=== PATIENT | male | born 1970 | race Caucasian/White ===

== ENCOUNTER 2016-12-05 13:19 | Emergency (ER) | payer SELFPAY ==
[~2016-12-05] VITALS: Ht 172.7 cm; Wt 80.0 kg
[~2016-12-05 13:19] MED LIST: ALBU8I INH; PRED10 PO; PRED1TAB PO; PRED50 PO; VENTAER INH
[2016-12-05 13:26] VITALS: BP 176/107; PULSE 85; RESP 22; TEMP 98.2; O2SAT 98
[2016-12-05 13:36] VITALS: BP 143/93; PULSE 86; RESP 24; TEMP 97.5; O2SAT 97
[2016-12-05] MEDS ORDERED: SPIRCAP INH (13:38)
[2016-12-05] MEDS ORDERED: PRED10 PO (13:38)
[2016-12-05] MEDS ORDERED: SODIUM CHLOR 0.9% 1000 ML INJ 1,000 ML IV ONE ×2 (14:15)
[2016-12-05] MEDS ORDERED: LORazepam 2 MG/ML VIAL IV PUSH ONE (14:15)
--- NOTE | 2016-12-05 14:33 | PD ---
HPI Chief Complaint: Respiratory Distress Time Seen by Provider: 14:09 Travel History International Travel<30 days: No Contact w/Intl Traveler<30days: No Traveled to known affect area: No History of Present Illness HPI So 45 old male presents to the emergency department via EMS complaining of shortness of breath, tingling and numbness in his hands and feet, and weakness. He is working outside when symptoms started. He has had similar symptoms in the past. He does have some anxiety with these episodes. Denies any chest pain. States symptoms with the numbness and tingling came on before the lightheadedness. 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 He rested felt a little bit better tried to drive but had worsening symptoms and so called EMS. History Past Medical History Narrative Medical Hypertension Tetanus Vaccination: Unknown Influenza Vaccination: No Past Surgical History Surgical History: No Previous Surgery Social History Alcohol Use: Yes (occ) Tobacco Use: No Allergies-Medications (Allergen,Severity, Reaction): Coded Allergies: No Known Allergies (Unverified , 10/13/15) Reported Meds & Prescriptions Reported Meds & Active Scripts Active Reported Spiriva Handihaler (Tiotropium Inh) 18 Mcg Cap 18 Mcg INH DAILY 1 capsule = 18 mcg Prednisone 10 Mg Tab 10 Mg PO DAILY Review of Systems Except as stated in HPI: all other systems reviewed are Neg Physical Exam Narrative GENERAL: Well-appearing 45 old man, sweaty, little bit exhausted appearing. SKIN: Hot and wet. HEAD: Atraumatic. Normocephalic. EYES: Pupils equal and round. No scleral icterus. No injection or drainage. CARDIOVASCULAR: Regular rate and rhythm. No murmur appreciated. RESPIRATORY: No accessory muscle use. Clear to auscultation. Breath sounds equal bilaterally. GASTROINTESTINAL: Abdomen soft, non-tender, nondistended. Hepatic and splenic margins not palpable. MUSCULOSKELETAL: No obvious deformities. No edema. No significant muscle body tenderness. NEUROLOGICAL: Awake and alert. No obvious cranial nerve deficits. Motor grossly within normal limits. Normal speech. PSYCHIATRIC: Appropriate mood and affect; insight and judgment normal. Data Data Last Documented VS Vital Signs Date Time Temp Pulse Resp B/P Pulse Ox O2 Delivery O2 Flow Rate FiO2 12/05/16 13:36 97.5 86 24 143/93 97 Room Air Orders Chest, Single Ap (12/05/16 ) Complete Blood Count With Diff (12/05/16 14:12) Basic Metabolic Panel (Bmp) (12/05/16 14:12) Iv Access Insert/Monitor (12/05/16 14:12) Sodium Chlor 0.9% 1000 Ml Inj (Ns 1000 M (12/05/16 14:15) Sodium Chlor 0.9% 1000 Ml Inj (Ns 1000 M (12/05/16 14:15) Lorazepam Inj (Ativan Inj) (12/05/16 14:15) Electrocardiogram (12/05/16 ) Labs Laboratory Tests Test 12/05/16 14:27 White Blood Count 11.6 TH/MM3 Red Blood Count 5.53 MIL/MM3 Hemoglobin 15.3 GM/DL Hematocrit 45.6 % Mean Corpuscular Volume 82.4 FL Mean Corpuscular Hemoglobin 27.6 PG Mean Corpuscular Hemoglobin 33.5 % Concent Red Cell Distribution Width 14.3 % Platelet Count 361 TH/MM3 Mean Platelet Volume 8.8 FL Neutrophils (%) (Auto) 78.5 % Lymphocytes (%) (Auto) 15.9 % Monocytes (%) (Auto) 3.9 % Eosinophils (%) (Auto) 1.0 % Basophils (%) (Auto) 0.7 % Neutrophils # (Auto) 9.1 TH/MM3 Lymphocytes # (Auto) 1.8 TH/MM3 Monocytes # (Auto) 0.4 TH/MM3 Eosinophils # (Auto) 0.1 TH/MM3 Basophils # (Auto) 0.1 TH/MM3 CBC Comment DIFF FINAL Differential Comment Sodium Level 138 MEQ/L Potassium Level 4.3 MEQ/L Chloride Level 105 MEQ/L Carbon Dioxide Level 19.4 MEQ/L Anion Gap 14 MEQ/L Blood Urea Nitrogen 15 MG/DL Creatinine 1.05 MG/DL Estimat Glomerular Filtration 77 ML/MIN Rate Random Glucose 100 MG/DL Calcium Level 9.5 MG/DL [facility] Medical Decision Making Medical Screen Exam Complete: Yes Emergency Medical Condition: Yes Interpretation(s) LABS: CBC remarkable for mild leukocytosis. BMP generally unremarkable. My review of EKG: Normal sinus rhythm at a rate of 71, normal axis, normal intervals, no ischemia. Chest x-ray: No acute disease. Differential Diagnosis Heat exhaustion, hyperventilation, anxiety, electrolyte abnormality, and weakness Narrative Course Medical decision making 45 old male presents emergency department with sounds a combination of heat exhaustion and anxiety. He looks well now. He is feeling better in the ED. We 'll trend we'll check labs, EKG, x-ray. We'll also infused 2 L of saline, give him some Ativan. We'll reassess. He's had similar episodes in the past and again seem like accommodation of panic symptoms with dehydration or heat exhaustion as a precipitant. Diagnosis Primary Impression: Heat exhaustion Additional Impression: Anxiety Additional Instructions: Drink plenty of fluids stay well-hydrated. Return to the emergency department for any new or worsening symptoms. Med/Other Pt SpecificInfo: No Change to Meds Disposition: 01 DISCHARGE HOME Condition: Stable Stanislav Hernandez MD December 05, 2016 14:33
[2016-12-05 14:42] LABS: AUTOMATED NEUTROPHIL # 9.1 TH/MM3 (1.8-7.7); BASOPHIL # 0.1 TH/MM3 (0-0.2); BASOPHIL % 0.7 % (0.0-2.0); EOSINOPHIL # 0.1 TH/MM3 (0-0.4); HEMATOCRIT 45.6 % (39.0-51.0); HEMO FLAGS DIFF FINAL; LYMPH % 15.9 % (9.0-44.0); LYMPHOCYTE # 1.8 TH/MM3 (1.0-4.8); MEAN CELL VOLUME 82.4 FL (80.0-100.0); MEAN CORPUSCULAR HEMOGLOBIN 27.6 PG (27.0-34.0); MEAN CORPUSCULAR HGB CONC 33.5 % (32.0-36.0); MONO % 3.9 % (0.0-8.0); NEUT % 78.5 % (16.0-70.0); PLATELET COUNT 361 TH/MM3 (150-450); RED BLOOD COUNT 5.53 MIL/MM3 (4.50-5.90); RED CELL DISTRIBUTION WIDTH 14.3 % (11.6-17.2); WHITE BLOOD COUNT 11.6 TH/MM3 (4.0-11.0)
[2016-12-05 15:09] LABS: BICARBONATE 19.4 MEQ/L (21.0-32.0); POTASSIUM 4.3 MEQ/L (3.5-5.1)
--- NOTE | 2016-12-05 15:09 | RADRPT ---
EXAM DATE/TIME: 12/05/2016 14:34 [facility] COMPARISON: CHEST SINGLE AP, October 13, 2015, 4:46. INDICATIONS : Short of breath, productive cough, numbness in legs and feet. MEDICAL HISTORY : None. SURGICAL HISTORY : None. ENCOUNTER: Initial ACUITY: 1 day PAIN SCORE: 0/10 LOCATION: Bilateral chest FINDINGS: A single view of the chest demonstrates the lungs to be symmetrically aerated without evidence of mas s, infiltrate or effusion. The cardiomediastinal contours are unremarkable. Osseous structures are intact. CONCLUSION: No acute disease. Hugo Powell MD on December 05, 2016 at 15:06 Board Certified Radiologist. This report was verified electronically.
[2016-12-05 15:47] VITALS: BP 132/80
--- NOTE | 2016-12-06 11:03 | EKG ---
Date Performed: 12/05/2016 Time Performed: 14:44:07 PTAGE: 45 years EKG: Sinus rhythm NORMAL ECG NO PREVIOUS TRACING DOCTOR: Stanislav Irvin Interpretating Date/Time 12/06/2016 11:00:21
== END 2016-12-05 15:50 | disposition home or self-care (01) ==
LOC: NEPD 13:19
DX: T67.5XXA Heat exhaustion, unspecified, initial encounter (principal); F41.9 Anxiety disorder, unspecified; R06.02 Shortness of breath; R20.0 Anesthesia of skin; I10 Essential (primary) hypertension
CPT/HCPCS: 71010; 80048; 85025; 93005; 96361; 96374; 99285; J2060; J7030

== ENCOUNTER 2016-12-20 12:15 | Emergency (ER) | payer SELFPAY ==
[~2016-12-20] VITALS: Ht 177.8 cm; Wt 80.0 kg
[~2016-12-20 12:15] MED LIST changes: -ALBU8I INH; -PRED1TAB PO; -PRED50 PO; +SPIRCAP INH; -VENTAER INH
[2016-12-20 12:17] VITALS: BP 157/94; PULSE 80; RESP 20; TEMP 98.1; O2SAT 96
--- NOTE | 2016-12-20 12:25 | PD ---
Physical Exam Time Seen by Provider: 12:23 Narrative 46yo M requesting return to work release paperwork to be filled out to return to work. Has no medical complaints at this time. Patient seen in triage. VS reviewed. Awaiting bed placement. Data Data Last Documented VS Vital Signs Date Time Temp Pulse Resp B/P Pulse Ox O2 Delivery O2 Flow Rate FiO2 12/20/16 12:17 98.1 80 20 157/94 96 Room Air [facility] Supervised Visit with LEXII: Nahomy Padilla December 20, 2016 12:25
--- NOTE | 2016-12-20 12:50 | PD ---
HPI Chief Complaint: Medical Clearance Time Seen by Provider: 12:47 Travel History International Travel<30 days: No Contact w/Intl Traveler<30days: No Traveled to known affect area: No History of Present Illness HPI Patient is a 46-year-old male presenting to the emergency department for a work release. Patient was seen and evaluated on December 05 after suffering from heat exhaustion. He was placed on no restrictions at that time. He states that his work will not let him return and told paperwork is completed. Patient is in no further issues since he was evaluated in the emergency department. He denies any complaints at this time. [facility] Past Medical History Asthma: Yes Anxiety: Yes COPD: Yes Diminished Hearing: No Hypertension: Yes Social History Alcohol Use: Yes (occ) Tobacco Use: No Substance Use: No Allergies-Medications (Allergen,Severity, Reaction): Coded Allergies: No Known Allergies (Unverified , 10/13/15) Reported Meds & Prescriptions Reported Meds & Active Scripts Active Review of Systems Except as stated in HPI: all other systems reviewed are Neg Physical Exam Narrative GENERAL: Developed, well-nourished, alert male. Resting comfortably in no acute distress. SKIN: Focused skin assessment warm/dry. HEAD: Atraumatic. Normocephalic. EYES: Pupils equal and round. No scleral icterus. No injection or drainage. ENT: No nasal bleeding or discharge. Mucous membranes pink and moist. NECK: Trachea midline. No JVD. CARDIOVASCULAR: Regular rate and rhythm. No murmur appreciated. RESPIRATORY: No accessory muscle use. Clear to auscultation. Breath sounds equal bilaterally. GASTROINTESTINAL: Abdomen soft, non-tender, nondistended. Hepatic and splenic margins not palpable. MUSCULOSKELETAL: No obvious deformities. No clubbing. No cyanosis. No edema. NEUROLOGICAL: Awake and alert. No obvious cranial nerve deficits. Motor grossly within normal limits. Normal speech. PSYCHIATRIC: Appropriate mood and affect; insight and judgment normal. Data Data Last Documented VS Vital Signs Date Time Temp Pulse Resp B/P Pulse Ox O2 Delivery O2 Flow Rate FiO2 12/20/16 12:17 98.1 80 20 157/94 96 Room Air MDM Medical Decision Making Medical Screen Exam Complete: Yes Emergency Medical Condition: Yes Interpretation(s) Vital Signs Date Time Temp Pulse Resp B/P Pulse Ox O2 Delivery O2 Flow Rate FiO2 12/20/16 12:17 98.1 80 20 157/94 96 Room Air Differential Diagnosis Normal examination versus medical clearance versus other Narrative Course Patient is a 46-year-old male presenting to emergency department for work release paperwork to be completed. He has no primary doctor. He was seen and evaluated on December 05, 2016 and diagnosed with heat exhaustion. He has been off of work since that time as he subsequently took a vacation. He has had no complaints, no episodes of heat exhaustion, chest pain, syncope. His vital signs are stable, patient is well-appearing. Paperwork will be completed, medical records were reviewed and patient was placed on no restrictions on upon discharge from the hospital. Diagnosis Primary Impression: Normal physical examination Referrals: Primary Care Physician Patient Instructions: General Instructions Additional Instructions: Maintain adequate fluid intake Maintain adequate rest No restrictions on activities Follow-up with primary doctor Return to emergency department for any new or worsening symptoms Med/Other Pt SpecificInfo: No Change to Meds Disposition: 01 DISCHARGE HOME Condition: Stable Francheska Egan December 20, 2016 12:50
== END 2016-12-20 13:04 | disposition home or self-care (01) ==
LOC: NEPK 12:15
DX: T67.5XXA Heat exhaustion, unspecified, initial encounter (principal); X58.XXXA Exposure to other specified factors, initial encounter; Z76.89 Persons encountering health services in other specified circumstances
CPT/HCPCS: 99281